=== PATIENT | female | born 2000 | race Caucasian/White ===

== ENCOUNTER 2021-12-05 10:48 | Emergency (ER) | payer OTHER ==
[2021-12-05 12:05] LABS: CORONAVIRUS 2019 SARS-COV-2 NEGATIVE (NEGATIVE); INFLUENZA A NAA NEGATIVE (NEGATIVE)
[2021-12-05 14:31] LABS: BILIRUBIN NEGATIVE (NEGATIVE); BLOOD NEGATIVE Ery/uL (NEGATIVE); CLARITY CLEAR (CLEAR); COLOR YELLOW (YELLOW); GLUCOSE (U) NORMAL (NORMAL); LEUKOCYTES NEGATIVE Leu/uL (NEGATIVE); NITRITE NEGATIVE (NEGATIVE); PROTEIN NEGATIVE (NEGATIVE)
[2021-12-05 14:47] LABS: BASOPHIL 0.6 % (0-2); EOSINOPHIL 0.8 % (0-5); HCT 43.4 % (37.0-47.0); HGB 14.6 g/dl (12.5-16.0); MCHC 33.6 g/dL (32.0-36.0); MCV 92.1 fL (78.0-100.0); MONOCYTE 6.6 % (0-12); NEUTROPHIL 64.8 % (41-80); NRBC 0; PLT 226 K/uL (150-400); RBC 4.71 M/uL (4.20-5.40); RDW 12.2 % (11.5-14.0); WBC 6.3 K/uL (4.0-10.5)
[2021-12-05 15:03] LABS: BUN 14 mg/dL (7-18); BUN/CREAT RATIO (CALC) 22.2 RATIO; CHLORIDE 104 mmol/L (98-107); CO2 (BICARBONATE) 26 mmol/L (21-32); CREATININE 0.63 mg/dL (0.51-0.95); GLUCOSE 90 mg/dL (74-106); POTASSIUM 3.8 mmol/L (3.5-5.1)
== END 2021-12-05 15:32 | disposition home or self-care (01) ==
LOC: FER 10:48
PROVIDERS: Emergency Medicine; Nurse Practitioner Family
DX: R00.2 Palpitations (principal); Z20.822 Contact with and (suspected) exposure to COVID-19; Z88.2 Allergy status to sulfonamides
CPT/HCPCS: 36415; 71045; 80048; 81003; 84484; 85025; U0002